=== PATIENT | male | born 1960 | race Caucasian/White ===

== ENCOUNTER 2017-02-02 19:42 | Emergency (ER) | payer MEDICAID ==
[~2017-02-02] VITALS: Ht 175.3 cm; Wt 73.9 kg
[2017-02-02 19:56] VITALS: BP_SYST 132
[2017-02-02] MEDS ORDERED: PRO40 PO (20:14)
[2017-02-02] MEDS ORDERED: COLC0.6C PO (20:14)
[2017-02-02] MEDS ORDERED: METO-442 PO (20:14)
[2017-02-02] MEDS ORDERED: PRED20TA PO (20:14)
[2017-02-02] MEDS ORDERED: IBUP-1969 PO (20:14)
[2017-02-02 20:33] LABS: BASOPHILS # (AUTO) 0.1 K/uL (0.0-0.2); BASOPHILS % (AUTO) 0.8 % (0.0-2.0); EOSINOPHILS # (AUTO) 0.5 K/uL (0.0-0.4); EOSINOPHILS % (AUTO) 6.9 % (0.0-4.0); HEMATOCRIT 28.5 % (36-54); HEMOGLOBIN 9.2 g/dL (14.0-18.0); LYMPHOCYTES # (AUTO) 2.4 K/uL (1.0-5.5); LYMPHOCYTES % (AUTO) 35.1 % (20.5-51.5); MEAN CORPUSCULAR HEMOGLOBIN 26 pg (27-31); MEAN CORPUSCULAR HGB CONC 32 % (32-36); MEAN CORPUSCULAR VOLUME 81 fL (79.0-98.0); MONOCYTES # (AUTO) 0.7 K/uL (0.0-1.0); MONOCYTES % (AUTO) 10.7 % (1.7-9.3); NEUTROPHILS # (AUTO) 3.1 K/uL (1.8-7.7); NEUTROPHILS % (AUTO) 46.5 % (40.0-70.0); PLATELET COUNT (AUTO) 214 K/uL (130-430); RED BLOOD CELL COUNT(AUTO) 3.51 MIL/uL (4.2-6.2); RED CELL DISTRIBUTION WIDTH 18.3 % (9.0-15.0); WHITE BLOOD COUNT (AUTO) 6.8 K/uL (4.8-10.8)
[2017-02-02 20:52] LABS: CALCIUM 8.3 mg/dL (8.4-11.0); CREATININE 0.94 mg/dL (0.55-1.30); POTASSIUM 3.8 mmol/L (3.5-5.1)
[2017-02-02 20:57] LABS: TOTAL BILIRUBIN 0.1 mg/dL (0.0-1.0)
[2017-02-02 20:58] LABS: INR 0.9 (0.80-1.20); PROTHROMBIN TIME 10.3 SECS (9.5-12.5)
[2017-02-02 21:47] VITALS: BP_SYST 129
== END 2017-02-02 21:47 | disposition home or self-care (01) ==
LOC: SED 19:42
DX: R60.0 Localized edema (principal); T38.0X5A Adverse effect of glucocorticoids and synthetic analogues, initial encounter; I11.0 Hypertensive heart disease with heart failure; I50.9 Heart failure, unspecified; Y92.89 Other specified places as the place of occurrence of the external cause
CPT/HCPCS: 36415; 71010; 80053; 83880; 85025; 85379; 85610-TC; 85730-TC; 93005; 99285